=== PATIENT | female | born 1975 | race Caucasian/White ===

== ENCOUNTER 2020-02-01 05:49 | Emergency (ER) | payer SELFPAY ==
[~2020-02-01] VITALS: Ht 165.1 cm; Wt 68.0 kg
--- NOTE | 2020-02-01 06:09 | NUR ---
PT BLAKE FROM HOME STATES "I HAVE TROUBLE BREATHING PAST FEW DAYS AND I AM HAVING INSOMNIA". PT AAOX3, VSS, RESPIRATIONS EVEN AND UNLABORED ON RA SATTING 98% ON RA. PT CONNECTED TO THE MONITOR AND POX
--- NOTE | 2020-02-01 06:40 | NUR ---
URINE COLLECTED AND SENT TO LAB
[2020-02-01 06:43] LABS: ABG OXYGEN SATURATION 97.9 % (92.0-98.5); ABG PCO2 30.9 mmHg (35.0-45.0); ABG PH 7.398 (7.350-7.450); ABG PO2 111.1 mmHg (75.0-100.0); AaDO2 1.6 mmHg; COHb 0.2 % (0.5-1.5); MetHb 0.4 % (0.0-1.5); O2Hb 97.3 % (94.0-97.0); SITE, ABG Right Radial; VENT MODE, BG Room Air
[2020-02-01 06:46] LABS: BASOPHILS # (AUTO) 0.1 /CMM (0.0-0.2); BASOPHILS % (AUTO) 0.6 % (0.0-2.0); EOSINOPHILS % (AUTO) 0.5 % (0.0-6.0); HEMATOCRIT 42 % (33-45); HEMOGLOBIN 14.2 g/dL (11.5-14.8); LYMPHOCYTES % (AUTO) 22.1 % (20.0-44.0); MEAN CORPUSCULAR HGB CONC 34 g/dl (31.0-36.0); MEAN CORPUSCULAR VOLUME 90 fL (82-100); MONOCYTES # (AUTO) 0.7 /CMM (0.1-1.30); MONOCYTES % (AUTO) 7.4 % (2.0-12.0); NEUTROPHILS # (AUTO) 6.2 /CMM (1.8-8.9); NEUTROPHILS % (AUTO) 69.4 % (43.0-81.0); PLATELET COUNT (AUTO) 388 /CMM (150-450); RED BLOOD CELL COUNT(AUTO) 4.65 MIL/uL (4.0-5.2)
[2020-02-01 06:53] LABS: CALCIUM, SERUM 9.3 mg/dL (8.5-10.1); CARBON DIOXIDE 23 mmol/L (21-32); CHLORIDE 99 mmol/L (98-107); GLUCOSE 175 mg/dL (74-106); POTASSIUM 2.9 mmol/L (3.5-5.1); SODIUM SERUM 136 mmol/L (136-145); UREA NITROGEN, BLOOD 2 mg/dL (7-18)
[2020-02-01 06:58] LABS: ALANINE AMINOTRANSFERASE 17 U/L (12-78); ALBUMIN 4.2 g/dL (3.4-5.0); ALCOHOL, BLOOD < 3 mg/dL (0-0); ALKALINE PHOSPHATASE 48 U/L (46-116); ASPARTATE AMINOTRANSFERASE 11 U/L (15-37); BILIRUBIN,DIRECT 0.1 mg/dL (0.0-0.2); BILIRUBIN,TOTAL 0.4 mg/dL (0.2-1.0); TOTAL PROTEIN, SERUM 7.7 g/dL (6.4-8.2)
[2020-02-01 06:59] LABS: ACETAMINOPHEN 0 ug/ml (10-30); SALICYLATE 1.2 mg/dL (2.8-20.0)
--- NOTE | 2020-02-01 06:59 | NUR ---
PT'S [phone] CELENA
--- NOTE | 2020-02-01 07:24 | NUR ---
RECEIVED REPORT FROM DAVIS HEDRICK FOR SAILAJA, PT IS AAOX2, NOT IN RESPIRATORY DISTRESS, V/S STABLE, KEPT RESTED AND COMFORTABLE, WILL CONTINUE TO MONITOR.
--- NOTE | 2020-02-01 07:24 | NUR ---
REPORT GIVEN TO HUAN JOHNSON RN FOR SAILAJA
[2020-02-01] MEDS ORDERED: POTASSIUM CHLORIDE 20 MEQ TAB.PRT.SR PO ONE ×2 (07:26→07:30)
--- NOTE | 2020-02-01 07:26 | NUR ---
CALLED PHARMACY FOR LUIZA BIRD.
[2020-02-01] MEDS ORDERED: IV NS 0.9% 1,000 ML BAG IV ONE (07:30)
[2020-02-01] MEDS ORDERED: LORAZEPAM INJ 2 MG/ML VIAL IV ONE (07:30)
--- NOTE | 2020-02-01 07:35 | NUR ---
MEDICALLY CLEARED. KATYA CALLED FOR PSYCH EVAL.
[2020-02-01] MEDS ORDERED: LORAZEPAM INJ 2 MG/ML VIAL ONE (07:52)
--- NOTE | 2020-02-01 08:00 | NUR ---
KATYA ROSENTHAL AT BEDSIDE FOR EVAL.
--- NOTE | 2020-02-01 08:08 | NUR ---
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
--- NOTE | 2020-02-01 09:01 | NUR ---
IV removed. Catheter intact and site benign. Pressure and 4x4 applied to site. No bleeding noted. Patient discharged to home in stable condition. Written and verbal after care instructions given. Patient verbalizes understanding of instruction.
[2020-02-01 09:02] VITALS: BP 133/84
== END 2020-02-01 09:03 | disposition home or self-care (01) ==
LOC: ER 05:52
DX: F41.9 Anxiety disorder, unspecified (principal)
CPT/HCPCS: 36415; 36600 ×2; 71045; 80048; 80076; 80307; 80329; 82803; 84484; 85025; 85378; 93005; 96374; 99285; G0480; J2060; J7030